=== PATIENT | male | born 1985 | race Caucasian/White ===

== ENCOUNTER → 2016-12-26 | Outpatient (CLI) | payer OTHER | LOC: EXRD 10:51 | DX: M54.5 Low back pain (principal) | CPT/HCPCS: 72110 ==

== ENCOUNTER 2017-03-25 21:51 | Emergency (ER) | payer OTHER | END 2017-03-25 23:35 | disposition left against medical advice (07) | LOC: ER1 21:51 | DX: Z53.21 Procedure and treatment not carried out due to patient leaving prior to being seen by health care provider (principal) ==